=== PATIENT | female | born 1995 | race Hispanic/Latino ===

== ENCOUNTER 2022-10-07 17:23 | Emergency (ER) | payer MEDICAID, OTHER ==
[~2022-10-07] VITALS: Ht 154.9 cm; Wt 59.4 kg
[2022-10-07 17:28] VITALS: BP 111/65
[2022-10-07] MEDS ORDERED: 0.9%NACL 1000ML 1,000 ML IV ONE (18:30)
[2022-10-07 18:54] LABS: APPEARANCE,URINE CLEAR (CLEAR); BILIRUBIN,URINE NEGATIVE (NEGATIVE); COLOR,URINE YELLOW (YELLOW); GLUCOSE, URINE (UA) NEGATIVE (NEGATIVE); KETONES,URINE NEGATIVE (NEGATIVE); LEUKOCYTE ESTERASE ,URINE 25 Leu/uL (NEGATIVE); NITRATE,URINE NEGATIVE (NEGATIVE); OCCULT BLOOD,URINE NEGATIVE (NEGATIVE); PROTEIN,URINE 20 mg/dL (NEGATIVE); UROBILINOGEN,URINE 0.2 mg/dL (0.2-1.0)
[2022-10-07 19:04] LABS: BACTERIA,URINE MOD /HPF (None Seen); MUCUS,URINE FEW LPF (None Seen); OTHER CASTS, URINE 1 /LPF (None Seen); SQUAMOUS EPITHELIAL CELL,UR RARE /HPF (0-2); YEAST,URINE BUDDING FEW /HPF (None Seen)
[2022-10-07 19:18] LABS: BASOPHILS % (AUTO) 0.2 % (0.0-5.0); EOSINOPHILS % (AUTO) 0.4 % (0.0-8.0); LYMPHOCYTES % (AUTO) 11.8 % (21.0-51.0); MEAN CORPUSCULAR HEMOGLOBIN 28.9 pg (27.0-33.0); MEAN CORPUSCULAR HGB CONC 32.2 g/dL (32.0-36.0); MEAN CORPUSCULAR VOLUME 89.6 fL (79-99); MONOCYTES % (AUTO) 4.4 % (3.0-13.0); NEUTROPHILS % (AUTO) 82.5 % (40.0-77.0); PLATELET COUNT (AUTO) 218 K/uL (130-400); RED BLOOD CELL COUNT(AUTO) 3.57 MIL/uL (4.00-5.50); WHITE BLOOD COUNT (AUTO) 10.5 K/uL (4.8-10.8)
[2022-10-07 19:20] LABS: CREATININE 0.5 mg/dL (0.5-1.5); POTASSIUM 3.3 mmol/L (3.5-5.1)
[2022-10-07 19:46] LABS: TOTAL PROTEIN, SERUM 6.7 g/dL (6.0-8.3)
[2022-10-07] MEDS ORDERED: CEPH500C2 PO (20:14)
[2022-11-14] MEDS ORDERED: PREN-226 PO (17:14)
[2022-11-14] MEDS ORDERED: FERS325 PO (17:14)
[2022-11-14] MEDS ORDERED: DOCU100C33 PO (17:14)
[2022-11-18] MEDS ORDERED: NITR100C PO ×2 (09:27→09:28)
== END 2022-10-07 20:46 | disposition home or self-care (01) ==
LOC: EDH 17:23
DX: O99.012 Anemia complicating pregnancy, second trimester (principal); O26.892 Other specified pregnancy related conditions, second trimester; O99.282 Endocrine, nutritional and metabolic diseases complicating pregnancy, second trimester; O99.412 Diseases of the circulatory system complicating pregnancy, second trimester; D64.9 Anemia, unspecified; E86.0 Dehydration; Z3A.18 18 weeks gestation of pregnancy; Z88.0 Allergy status to penicillin
CPT/HCPCS: 99291; 96360; 76805; 84484; 80053; 84702; 85025; 86900; 86901; 87077; 87088; 87186; 81001; 36415; 93005; J7030

== ENCOUNTER → 2023-02-19 | Outpatient (CLI) | payer MEDICAID ==
[~2023-02-19] MED LIST: DOCU100C33 PO; FERS325 PO; PREN-226 PO; VANTIN PO
== END | disposition home or self-care (01) ==
LOC: SHCH 10:42
PROVIDERS: ATTEND Internal Medicine Cardiovascular Disease
DX: R55 Syncope and collapse (principal)
CPT/HCPCS: 93306

== ENCOUNTER 2023-03-02 21:48 | Inpatient (IN) | payer MEDICAID ==
[~2023-03-02] VITALS: Ht 154.9 cm; Wt 74.4 kg
[2023-03-02] MEDS ORDERED: LACTATED RINGERS 1000ML 1,000 ML IV SCH (22:30)
[2023-03-02 23:30] LABS: HEMATOCRIT 28.4 % (36-48); MEAN CORPUSCULAR HEMOGLOBIN 23.2 pg (27.0-33.0); MEAN CORPUSCULAR HGB CONC 30.3 g/dL (32.0-36.0); MEAN CORPUSCULAR VOLUME 76.8 fL (79-99); PLATELET COUNT (AUTO) 248 K/uL (130-400); RED CELL DISTRIBUTION WIDTH 16.7 % (11.0-15.5); WHITE BLOOD COUNT (AUTO) 8.2 K/uL (4.8-10.8)
[2023-03-03 00:08] VITALS: BP 116/58
[2023-03-03 01:29] LABS: APPEARANCE,URINE CLEAR (CLEAR); BILIRUBIN,URINE NEGATIVE (NEGATIVE); COLOR,URINE YELLOW (YELLOW); GLUCOSE, URINE (UA) NEGATIVE (NEGATIVE); KETONES,URINE 5 mg/dL (NEGATIVE); LEUKOCYTE ESTERASE ,URINE 25 Leu/uL (NEGATIVE); NITRATE,URINE NEGATIVE (NEGATIVE); OCCULT BLOOD,URINE NEGATIVE (NEGATIVE); PROTEIN,URINE 10 mg/dL (NEGATIVE)
[2023-03-03 01:37] LABS: MUCUS,URINE RARE LPF (None Seen); SQUAMOUS EPITHELIAL CELL,UR FEW /HPF (0-2)
[2023-03-03] MEDS: LACTATED RINGERS 1000ML 1,000 ML IV PRN ×3 (03:01→09:07)
[2023-03-03] MEDS ORDERED: OXYTOCIN-LR 30 UNITS/500ML 500 ML IV SCH (05:00)
[2023-03-03] MEDS ORDERED: PROMETHAZINE HCL 25 MG/ML 1ML AMPULE IM ONE (08:26)
[2023-03-03] MEDS ORDERED: MEPERIDINE-PF 50 MG/ML SYG ONE (08:26)
[2023-03-03] MEDS ORDERED: EPHEDRINE SULFATE 50 MG/ML AMPULE IVP PRN (08:30)
[2023-03-03] MEDS ORDERED: MEPERIDINE-PF 50 MG/ML SYG IVP PRN (08:30)
[2023-03-03] MEDS ORDERED: PROMETHAZINE HCL 25 MG/ML 1ML AMPULE IM PRN (08:30)
[2023-03-03] MEDS ORDERED: ROPIVACAINE 0.2% 100ML VIAL 100 ML EP SCH (08:30)
[2023-03-03] MEDS ORDERED: NALOXONE HCL 0.4 MG/1 ML ML IV PRN (08:30)
[2023-03-03] MEDS ORDERED: LACTATED RINGERS 500 ML 500 ML IV PRN (08:30)
[2023-03-03] MEDS ORDERED: FENTANYL CITRATE PF 50 MCG/1 ML 2ML VIAL ONE (10:44)
[2023-03-03] MEDS ORDERED: ONDANSETRON 4MG INJ ONE (17:02)
[2023-03-03] MEDS ORDERED: MISOPROSTOL 200 MCG TABLET ONE (17:02)
[2023-03-03] MEDS ORDERED: ONDANSETRON 4MG INJ IVP SCH (17:30)
[2023-03-03] MEDS: OXYTOCIN-LR 30 UNITS/500ML 500 ML IV SCH (19:06)
[2023-03-03] MEDS ORDERED: DIPH,PERTUSS(ACELL),TET VAC/PF 0.5 ML VIAL IM PRN (19:30)
[2023-03-03] MEDS ORDERED: WITCH HAZEL 1 PAD TP PRN (19:30)
[2023-03-03] MEDS ORDERED: ACETAMINOPHEN 325 MG TAB PO PRN (19:30)
[2023-03-03] MEDS ORDERED: ACETAMINOPHEN WITH CODEINE 1 TAB TAB PO PRN (19:30)
[2023-03-03] MEDS ORDERED: MEASLES/MUMPS/RUBELLA VACCINE, LIVE 0.5 ML/VIAL SQ PRN (19:30)
[2023-03-03] MEDS ORDERED: LANOLIN 30GM OINTMENT TP PRN (19:30)
[2023-03-03] MEDS ORDERED: BENZOCAINE/LANOLIN/ALOE VERA 60 ML AEROSOL TP PRN (19:30)
[2023-03-03] MEDS: DOCUSATE SODIUM 100 MG CAP PO SCH (21:00)
[2023-03-03 23:05] VITALS: BP 120/70; PULSE 79; RESP 18
[2023-03-04 03:56] VITALS: BP 93/59; PULSE 68; RESP 18
[2023-03-04] MEDS: IBUPROFEN 600 MG TABLET PO PRN ×2 (04:10→16:50)
[2023-03-04] MEDS: OXYTOCIN-LR 30 UNITS/500ML 500 ML IV SCH (04:31)
[2023-03-04 06:27] LABS: HEMATOCRIT 23.7 % (36-48); MEAN CORPUSCULAR HEMOGLOBIN 23.2 pg (27.0-33.0); MEAN CORPUSCULAR HGB CONC 30.8 g/dL (32.0-36.0); MEAN CORPUSCULAR VOLUME 75.5 fL (79-99); RED BLOOD CELL COUNT(AUTO) 3.14 MIL/uL (4.00-5.50); RED CELL DISTRIBUTION WIDTH 16.6 % (11.0-15.5); WHITE BLOOD COUNT (AUTO) 16.4 K/uL (4.8-10.8)
[2023-03-04 08:01] VITALS: BP 106/61; PULSE 62; RESP 16
[2023-03-04] MEDS: DOCUSATE SODIUM 100 MG CAP PO SCH (08:46)
[2023-03-04 12:21] VITALS: BP 113/75; PULSE 81; RESP 16
[2023-03-04 16:44] VITALS: BP 104/56; PULSE 69; RESP 16
== END 2023-03-04 19:05 | disposition home or self-care (01) | DRG 560 ==
LOC: LDH 22:01 → WSH 03-03 22:40
PROVIDERS: ADMIT Internal Medicine; ATTEND Internal Medicine
PROC: 10E0XZZ Delivery of Products of Conception, External Approach (ICD-10-PCS; principal; 2023-03-03)
PROC: 10907ZC Drainage of Amniotic Fluid, Therapeutic from Products of Conception, Via Natural or Artificial Opening (ICD-10-PCS; 2023-03-03)
PROC: 3E0R3BZ Introduction of Anesthetic Agent into Spinal Canal, Percutaneous Approach (ICD-10-PCS; 2023-03-03)
PROC: 00HU33Z Insertion of Infusion Device into Spinal Canal, Percutaneous Approach (ICD-10-PCS; 2023-03-03)
DX: O76 Abnormality in fetal heart rate and rhythm complicating labor and delivery (principal); Z37.0 Single live birth; O69.1XX0 Labor and delivery complicated by cord around neck, with compression, not applicable or unspecified; O99.02 Anemia complicating childbirth; Z3A.39 39 weeks gestation of pregnancy
CPT/HCPCS: 36415; 81001; 85027; 86592; 86850; 86900; 86901; 87340; A4314; A4351; G0378; J2175; J2405; J2550; J2795; J3010; J7120